=== PATIENT | female | born 2000 | race Caucasian/White ===

== ENCOUNTER → 2018-03-01 | Outpatient (CLI) | payer OTHER | LOC: M WUC 13:55 | DX: M25.512 Pain in left shoulder (principal) | CPT/HCPCS: 73030 ==

== ENCOUNTER → 2020-04-08 | Outpatient (REF) | payer OTHER ==
[~2020-04-08] MED LIST: BIOT10TA2 PO; CRAN450T4 PO; CYPR4TA PO; OMEP-218 PO; SERT-138 PO; VENTAER INH
== END ==
LOC: M LAB REF 18:39
PROVIDERS: ATTEND Internal Medicine Gastroenterology
DX: R19.7 Diarrhea, unspecified (principal)

== ENCOUNTER → 2020-04-10 | Outpatient (CLI) | payer OTHER | LOC: M LABSMTC 08:12 | PROVIDERS: ATTEND Anesthesiology | DX: Z01.812 Encounter for preprocedural laboratory examination (principal); Z20.822 Contact with and (suspected) exposure to COVID-19 ==

== ENCOUNTER → 2020-04-12 | Outpatient (CLI) | payer SELFPAY | LOC: M LABSMTC 09:50 | PROVIDERS: ATTEND Pediatrics | DX: Z20.822 Contact with and (suspected) exposure to COVID-19 (principal) ==

== ENCOUNTER 2020-04-15 09:05 | Day surgery (SDC) | payer OTHER ==
[~2020-04-15] VITALS: Ht 162.6 cm; Wt 78.9 kg
[~2020-04-15 09:05] MED LIST changes: +LIDOCAINE 2% 100MG/5ML SDV (FOR ANES.) As Ordered ONE; +NS 1,000 ML IV ONE; +propofoL 200 MG/20 ML VIAL As Ordered ONE
--- OUTSIDE RECORDS SUMMARY | 2020-04-15 09:09 | CCD | Continuity of Care Document ---
[facility] [place] Organization [facility] Address Unknown Phone Unavailable Care Team Providers Care Commercial Loan Officer Name Role Phone Arpita Lux Unavailable Unavailable Allergies, Adverse Reactions, Alerts Substance Reaction Status Criticality ciprofloxacin Active No Information Medications Medication Instructions Dosage Effective Dates (start - stop) Sta tus Comments Radha 14 mcg/24 hour (3 years) intrauterine device 14mcg/24 hour (3 years) - Active sertraline 100 mg tablet take 1 tablet by oral route every day 100 MG - Active OMEPRAZOLE (unknown strength) take 1 capsule by oral r oute every day 30 minutes to 1 hour before a meal Not Available - Active unknown dosage cyproheptadine 4 mg tablet take 1 tablet by oral route 3 times e very day 4 MG - Active ALBUTEROL INHALER 90mcg/inh INHALATION SPRAY MD - Active Problems Condition Effective Dates (start - stop) Clinical Status C omments Body mass index (BMI) 29.0-29.9, adult - Body mass index (BMI) 29.0-29.9, adult - Human immunodeficiency virus [HIV] counseling Other sex counseling Encounter for oth general cnsl and advice on contraception 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 Encntr screen for infections w sexl mode of transmiss Encounter for screening for human immunodeficiency virus Human immunodeficiency virus [HIV] counseling High risk heterosexual behavior Other sex counseling Encounter for oth general cnsl and advice on contraception 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 Other CVR Blood Pressure CVR Med.Svc. Height/Weight CVR Bender Machine.Svc. Contraceptive CVR Bender Machine.Svc. Other CVR Bender Machine.Svc. STI / H Results Test Name Date and Time Measure Units Reference Range Abnormal Flag St atus Comments No Information Advance Directives Directive Yes / No Effective Date File Name No Information Encounters Encounter Description Practice Location Reason(s) For Visit Diagnose s Date Provider Providers Copied on Encounter PREV VISIT, EST, AGE 18-39 [facility] [address] [place] [address], [id number], [place] tel:[phone] [place] Visit (chief complaint) Human immunodeficiency virus [HIV] couns elingOther sex counselingEncounter for oth general cnsl and advice on contraception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Body mass index (BMI) 29.0-29.9, adult Ludy Palm. [address] [place] [address], [id number], [place]. tel:[phone] Referring Provider: Arpita Boston, [address] [place] [address], [id number]. tel:[phone] [facility], [address] [place] [address], [id number], [place] tel:[phone] [facility] [place] Encntr screen for i nfections w sexl mode of transmissEncounter for screening for human immunodeficiency virusHuman immunodeficiency virus [HIV] counselingHigh risk heterosexual behaviorOther sex counselingEncounter for oth general cnsl and advice on contraception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Body mass index (BMI) 29.0-29.9, adult Ludy Palm. [address] [place] [address], [id number], . tel:[phone] Referring Provider: Arpita Boston, [address] [place] [address], [id number]. tel:[phone] [facility], [address] [place] [address], [id number], tel:[phone] [facility] Human immunodeficie ncy virus [HIV] counselingEncounter for test, result negativeEncounter for insertion of intrauterine contraceptive device Sanchez. [address] [place] [address], [address] [place] [address], . tel:[phone] Referring Provider: Xuan Correa, [address] [place] [address], [address] [place] [address]. tel:[phone] [facility], [address] [place] [address], [id number], tel:[phone] [facility] [place] Human immunodeficie ncy virus [HIV] counselingOther sex counselingEncounter for oth general cnsl and advice on contraceptionEncntr screen for infections w sexl mode of transmiss Brenna Bell. [address] [place] [address], [address] [place] [address], . tel:[phone] Referring Provider: Arabella Ceja, [address] [place] [address], [id number]. tel:[phone] Family History Family Member Diagnosis Age At Onset 1st degree relative No hx of coronary heart disease (female <65, male <55) 1st degree relative No hx of venous thromboembolism Father myocardial infarction 1st degree relative No hx of cancer of breast, colon, endome trium or ovary Immunizations Vaccine Date Status Comments No Information Payers Payer name Insurance type Covered constitution party ID Authorization(s ) [facility] [id number] [employer] PRESUMPTIVE ELIGIBILITY [facility] Social History Type Description Quantity Date Captured Comments Alcohol Use Details Unknown Caffeine Use Details Unknown Tobacco Use Status Never smoked tobacco Smoking Status Never smoker Non-Smoking Tobacco Use Details : No Details Available : No Details Available Sex Female Vital Signs Date / Time: Height Weight BMI Pulse Rate Blood Pressure Temperatu re Respiratory Rate Body Surface Area Head Circumference BMI percentile Pulse Ox In haled Ox 8:48 AM 65.00 in 175.40 lbs 29.19 kg/meter(2) 118/70 m m[Hg] Chief Complaint And Reason For Visit Most recent encounter only, dated '04/08/2020 08:35'. Preventative Visit (chief complaint) Reason For Referral Reason For Referral No Information Plan Of Treatment Date Type Action Status Goal Dietary management education, gu idance, and counseling completed Goal Dietary management education, gu idance, and counseling completed History Of Present Illness Encounter Date Complaint History Of Present I llness No Information Functional Status Date Functional Assessment No Information Medications Administered Medication Instructions Dosage Effective Dates (start - stop) Sta tus Comments No Information Instructions Date Instruction Additional Informati on Dietary management education, guidance, and counseling Related to Body mass index (BMI) 29.0-29.9, adult Dietary management education, guidance, and counseling Related to Body mass index (BMI) 29.0-29.9, adult Assessments Type Assessment Date assessment Human immunodeficiency virus [HIV] couns eling assessment Other sex counseling assessment Encounter for oth general cnsl and advic e on contraception assessment 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 Anterior palpation - Normal. No abdominal tenderness. No hepatic enlargement. No splenic enlargement. No palpable mass. Cardiovascular Normal Heart rate - Regular rate. Rhythm - Regular. Heart sounds - Normal S1, Normal S2. Murmurs - None. Extremities - No edema. Extremity Normal No Cyanosis. No Tree a. Neck Exam Normal Inspection - Normal. Palpation - Normal. Thyroid gland - Normal. Cervical lymph nodes - Normal. Neurological Normal Level of consciousne ss - Normal. Orientation - Normal. Respiratory Normal Inspection - Normal. Auscultation - Normal. Effort - Normal. Skin Normal Inspection - Normal. Palpation/texture - Normal. Breast * BSA was discussed. Genitourinary Normal Urethral meatus - No rmal. Urethra - Normal. External genitalia - Normal. Glands - Normal. Perineum - Normal. Vagina - Normal. Genitourinary * Cervix - IUC string per os.
--- OUTSIDE RECORDS SUMMARY | 2020-04-15 09:09 | CCD | Continuity of Care Document ---
Author Author [facility] Organization [facility] Address Unknown Phone Unavailable Care Team Providers Care Clinical Informatics Specialist Name Role Phone Cheri Chamberlain MD Unavailable Unavailable Allergies, Adverse Reactions, Alerts Substance Reaction Status Criticality ciprofloxacin Active No Information Medications Medication Instructions Dosage Effective Dates (start - stop) Sta tus Comments Radha 14 mcg/24 hour (3 years) intrauterine device 14mcg/24 hour (3 years) - Active OMEPRAZOLE (unknown strength) take 1 [...] Body mass index (BMI) 29.0-29.9, adult - Encntr screen for infections w sexl mode of transmiss Encounter for screening for human immunodeficiency virus Human immunodeficiency virus [HIV] counseling High risk heterosexual behavior Other sex counseling Encounter for oth general cnsl and advice on contraception 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 Human immunodeficiency virus [HIV] counseling Encounter for test, result negative Encounter for insertion of intrauterine contraceptive device Human immunodeficiency virus [HIV] counseling Other sex counseling Encounter for oth general cnsl and advice on contraception Encntr screen for infections w sexl mode of transmiss Procedures Procedure Date No Information Results Test Name Date and Time Measure Units Reference Range Abnormal Flag St atus Comments No Information Advance Directives Directive Yes / No Effective Date File Name No Information Encounters Encounter Description Practice Location Reason(s) For Visit Diagnose s Date Provider Providers Copied on Encounter [facility], [address] [place] [address], [id number], tel:[phone] JUAN Taylor No Information Bulmaro Alonzo. [address] [place] [address], [id number], . tel:[phone] [facility] [place], [address] [place] [address], [id number], [place] tel:[phone] JUAN [place] Encntr screen for i nfections w sexl mode of transmissEncounter for screening for human immunodeficiency virusHuman immunodeficiency virus [HIV] counselingHigh risk heterosexual behaviorOther sex counselingEncounter for oth general cnsl and advice on contraception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Body mass index (BMI) 29.0-29.9, adult Ludy Palm. [address] [place] [address], [id number], [place]. tel:[phone] Referring Provider: Arpita Boston, [address] [place] [address], [id number]. tel:[phone] [facility] [place], [address] [place] [address], [id number], [place] tel:[phone] JUAN [place] Human immunodeficie ncy virus [HIV] counselingEncounter for test, result negativeEncounter for insertion of intrauterine contraceptive device Sanchez. [address] [place] [address], [id number], [place]. tel:[phone] Referring Provider: Xuan Correa, [address] [place] [address], [id number]. tel:[phone] [facility] [place], [address] [place] [address], [id number], [place] tel:[phone] JUAN [place] Human immunodeficie ncy virus [HIV] counselingOther sex counselingEncounter for oth general cnsl and advice on contraceptionEncntr screen for infections w sexl mode of transmiss Brenna Bell. [address], [place], [id number], [place]. tel:[phone] Referring Provider: Arabella Ceja, [address], [place], [id number]. tel:[phone] Family History Family Member Diagnosis Age At Onset Father myocardial infarction Immunizations Vaccine Date Status Comments No Information Payers Payer name Insurance type Covered constitution party ID Authorization(s ) [facility] [id number] Social History Type Description Quantity Date Captured Comments Alcohol Use Details Unknown Caffeine Use Details Unknown Tobacco Use Status No Information Smoking Status Never smoker Sex Female Vital Signs Date / Time: Height Weight BMI Pulse Rate Blood Pressure Temperatu re Respiratory Rate Body Surface Area Head Circumference BMI percentile Pulse Ox In haled Ox No Information Chief Complaint And Reason For Visit No Information Reason For Referral Reason For Referral No [...] (BMI) 29.0-29.9, adult Assessments Type Assessment Date No Information Goals Health Concern Goal Type Priority Status Date No Information Medical Equipment Description Device [place] Device Identifier Effective Rolly es (start - stop) Status No Information Mental Status Date Cognitive Assessment No Information Health Concerns Observation Date No Information Concern Status Date No Information Physical Examination Exam Findings Details No Information
--- OUTSIDE RECORDS SUMMARY | 2020-04-15 09:10 | CCD ---
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 ped/adol (2 dose) 2 03/21/2007 Complete (Re ported) Patient Hep B pediatric 1 1998 Complete (Reported) P atient Hep B pediatric 2 1998 Complete (Reported) P atient Hep B pediatric 3 09/11/2002 Complete (Reported) P atient Influenza, seasonal, injectable 1 03/14/2012 Compl ete (Reported) Patient Influenza, seasonal, injectable 2 04/01/2013 Compl ete (Reported) Patient Influenza, seasonal, injectable 3 02/07/2016 Left Deltoid Complete (Administered) [facility] Influenza, seasonal, injectable 4 01/09/2018 Compl ete (Reported) Patient IPV 1 1998 Complete (Reported) Patient IPV 2 1998 Complete (Reported) Patient IPV 3 03/27/1999 Complete (Reported) Patient IPV 4 07/14/2003 Complete (Reported) Patient Meningococcal (MCV4) conjugate vaccine 1 10/03/2009 Complete (Reported) Patient Menveo 1 06/18/2014 Right Arm Complete (Administe red) [facility] Note: VIS Given MMR 1 09/04/1999 Complete (Reported) Patient MMR 2 07/14/2003 Complete (Reported) Patient PCV (Prevnar) 1 12/27/1999 Complete (Reported) Pat ient PCV (Prevnar) 2 07/25/2000 Complete (Reported) Pat ient Td 1 11/22/2009 Complete (Reported) Patient Varicella 1 06/12/1999 Complete (Reported) Patient Varicella 2 09/12/2006 Complete (Reported) Patient Allergies Includes: Active, inactive, and resolved Allergies Substance Type Reaction Onset Date - Time Resolved Date - Ti me Status DTaP Allergy seizure, anaphylaxis 1998 - 12:00AM Active Cipro Allergy Nausea, Vomiting, Diarrhea 06/29/2014 - 12:00AM Active Encounters Includes: Encounters from 02/23/2019 through 02/24/2020 Encounter Provider Location Date Check-In Time Check-Out Time D iagnosis ANNUAL PE-followup Zuleyka Marsh [facility] 02/24/2020 8:46AM 9:35AM Allergic Rhiniti s, Routine History and Physical Adult (18 - 64 Yrs), Depression Moderate sick visit Zuleyka [facility] 10/15/2019 12:50PM 1:22PM Diarrhea, Generalized Anxiet y Disorder Insurance Includes: Active Insurance Policies Plan Name Member ID Group # Subscriber Relationship Effective Da bridgette - [place] [id number] Alisha Rivas Child Advance Directives Includes: Current Advance DirectivesNo Advance Directives Recorded Health Concerns Includes: Active Health ConcernsNo Active Health Concerns Recorded Goals Includes: Active GoalsNo Active Goals Recorded Interventions Includes: Interventions for active GoalsNo Interventions Recorded Evaluations & Outcomes Includes: Evaluations & Outcomes for active GoalsNo Outcomes Recorded
--- OUTSIDE RECORDS SUMMARY | 2020-04-15 09:10 | CCD | Continuity of Care Document ---
Author Author Alyssa LINDA M.D. Organization Unknown Address [address], [address] [place] [address] Phone [phone] Care Team Providers Care Guard Entrance Registrar Name Role Phone Zuleyka Mora Maximo Franco AUTM [phone] Problems Active Problems Provider Date Allergic asthma without status asthmaticus Bhanu will M.D. Onset: 02/22/2020 Social History Type Date Description Comments Sex Unknown ETOH Use 0-1/day Tobacco Use Start: Unknown Non Smoker Allergies, Adverse Reactions, Alerts Active Allergies Reaction Severity Comments Date Whooping Cough Vaccine 02/21 Cipro 02/22/2020 Medications Active Medications SIG Qnty Indications Ordering Provide r Date Cyproheptadine HCL 4mg Tablets 1tab po qd Unknown Cranberry Concentrate/Vitamin C 140-100mg Capsules 1cap po bid Unknown Sertraline HCL 50mg Tablets 1tab po qd Unknown Biotin 10,000mcg Tablet 1tab po qd Unknown [address] 1cap po qd Unknown Radha 13.5mg IUD Unknown Immunizations Description No Information Available Vital Signs Date Vital Result Comment 02/22/2020 1:50pm BP Systolic 122 mmHg BP Diastolic 76 mmHg Height 64 inches 5'4" Weight 187.00 lb BMI (Body Mass Index) 32.1 kg/m2 [place] Body Weight 120 lb Weight 84.823 kg BSA (Body Surface Area) 1.90 m2 Results Description No Information Available Procedures Description No Information Available Medical Devices Description No Information Available Encounters Description No Information Available Assessments Date Code Description Provider 02/22/2020 R19.7 Diarrhea, unspecified Bhanu Linda M.D. 02/22/2020 R10.30 Lower abdominal pain, unspecifie d Bhanu Linda M.D. 02/22/2020 K62.5 Hemorrhage of anus and rectum Ch bonilla Linda M.D. Plan of Treatment 02/22/2020 - Bhanu Linda M.D.* R19.7 Diarrhea, unspecified * R10.30 Lower abdominal pain, unspecified * K62.5 Hemorrhage of anus and rectum * * New Labs:* Stool Panel([facility]), Ordered: 02/22/20 * Calprotectin Stool Sendout, Ordered: 02/22/20 * Fat Fecal Qualitative, Ordered: 02/22/20 * Pancreatic Elastase Stool Sendout, Ordered: 02/22/20 * H Pylori Stool Antigen, Ordered: 02/22/20 * New Orders:* Colonoscopy, Ordered: 02/22/20 * Comments:* Impression:-- Chronic diarrhea with lower abdominal pain and blood in stools -- DDx -- Need to r/o IBD vs IBS vs Infecitous enteritis. * Recommendations:* -- Educated patient about the prior test results and need for further work up. -- Will obtain stool panel tests. -- Will schedule for colonoscopy. The procedure, indications, risks (bleeding, perforation, infection, hypotension, respiratory depression, allergy, need for endotracheal intubation, surgery, or even ), benefits, limitations (e.g., missing a lesion), and all other alternatives (including no intervention) were explained to the patient who understood and agreed for the procedure. -- Return to GI clinic 2 weeks after the above. -- follow up with PMD for routine medical care and other age appropriate health maintenance. Functional Status Description No Information Available Mental Status Description No Information Available Referrals Refer to Reason for Referral Status Appt Date Caesar Lopez MD DIARRHEA Scheduled 12/31/2019 [facility], Gastroenterology [address], [address] [place] [address] [phone] Bhanu Linda M.D. inflammation of bowel disease Closed [address], [address] [place] [address] [phone]
--- OUTSIDE RECORDS SUMMARY | 2020-04-15 09:10 | CCD ---
Author Author [facility] Organization [facility] Address Unknown Phone Unavailable Care Team Providers Care Horticulture Professor Name Role Phone Lucy Chamberlain MD Unavailable Unavailable Bulmaro, Lucy Alonzo MD Unavailable Unavailable Bulmaro, Lucy Alonzo MD Unavailable Unavailable Bulmaro, Lucy Alonzo MD Unavailable Unavailable Bulmaro, Lucy Alonzo MD Unavailable Unavailable Bulmaro, Lucy Alonzo MD Unavailable Unavailable Bulmaro, Lucy Alonzo MD Unavailable Unavailable Bulmaro, Lucy Alonzo MD Unavailable Unavailable Bulmaro, Lucy Alonzo MD Unavailable Unavailable Bulmaro, Lucy Alonzo MD Unavailable Unavailable Bulmaro, Lucy Alonzo MD Unavailable Unavailable Bulmaro, Lucy Alonzo MD Unavailable Unavailable Bulmaro, Lucy Alonzo MD Unavailable Unavailable Bulmaro, Lucy Alonzo MD Unavailable Unavailable Bulmaro, Lucy Alonzo MD Unavailable Unavailable Bulmaro, Lucy Alonzo MD Unavailable Unavailable Bulmaro, Lucy Alonzo MD Unavailable Unavailable Bulmaro, Lucy Alonzo MD Unavailable Unavailable Bulmaro, Lucy Alonzo MD Unavailable Unavailable Bulmaro, Lucy Alonzo MD Unavailable Unavailable Bulmaro, Lucy Alonzo MD Unavailable Unavailable Bulmaro, Lucy Alonzo MD Unavailable Unavailable Bulmaro, Lucy Alonzo MD Unavailable Unavailable Bulmaro, Lucy Alonzo MD Unavailable Unavailable Bulmaro, Lucy Alonzo MD Unavailable Unavailable Bulmaro, Lucy Alonzo MD Unavailable Unavailable Bulmaro, Lucy Alonzo MD Unavailable Unavailable Bulmaro, Lucy Alonzo MD Unavailable Unavailable Bulmaro, Lucy Alonzo MD Unavailable Unavailable Bulmaro, Luyc Alonzo MD Unavailable Unavailable Bulmaro, A Cheri MENDEZ Unavailable Unavailable Bulmaro, A Cheri MENDEZ Unavailable Unavailable Bulmaro, A Cheri MENDEZ Unavailable Unavailable Bulmaro, A Cheri MENDEZ Unavailable Unavailable Bulmaro, A Cheri MENDEZ Unavailable Unavailable Bulmaro, A Cheri MENDEZ Unavailable Unavailable Bulmaro, A Cheri MENDEZ Unavailable Unavailable Bulmaro, A Cheri MENDEZ Unavailable Unavailable Bulmaro, A Cheri MENDEZ Unavailable Unavailable Bulmaro, A Cheri MENDEZ Unavailable Unavailable Bulmaro, A Cheri MENDEZ Unavailable Unavailable Bulmaro, A Cheri MENDEZ Unavailable Unavailable Bulmaro, A Cheri MENDEZ Unavailable Unavailable Bulmaro, A Cheri MENDEZ Unavailable Unavailable Bulmaro, A Cheri MENDEZ Unavailable Unavailable Bulmaro, A Cheri MENDEZ Unavailable Unavailable Bulmaro, A Cheri MENDEZ Unavailable Unavailable Bulmaro, A Cheri MENDEZ Unavailable Unavailable Bulmaro, A Cheri MENDEZ Unavailable Unavailable Bulmaro, A Cheri MENDEZ Unavailable Unavailable Bulmaro, A Cheri MENDEZ Unavailable Unavailable Bulmaro, A Cheri MENDEZ Unavailable Unavailable Bulmaro, A Cheri MENDEZ Unavailable Unavailable Bulmaro, A Cheri MENDEZ Unavailable Unavailable Bulmaro, A Cheri MENDEZ Unavailable Unavailable Bulmaro, A Cheri MENDEZ Unavailable Unavailable Bulmaro, A Cheri MENDEZ Unavailable Unavailable Bulmaro, A Cheri MENDEZ Unavailable Unavailable Bulmaro, A Cheri MENDEZ Unavailable Unavailable Bulmaro, A Cheri MENDEZ Unavailable Unavailable Bulmaro, A Cheri MENDEZ Unavailable Unavailable Bulmaro, A Cheri MENDEZ Unavailable Unavailable Bulmaro, A Cheri MENDEZ Unavailable Unavailable Bulmaro, A Cheri MENDEZ Unavailable Unavailable Bulmaro, A Cheri MENDEZ Unavailable Unavailable Bulmaro, A Cheri MENDEZ Unavailable Unavailable Bulmaro, A Cheri MENDEZ Unavailable Unavailable Bulmaro, A Cheri MENDEZ Unavailable Unavailable Bulmaro, A Cheri MENDEZ Unavailable Unavailable Bulmaro, A Cheri MENDEZ Unavailable Unavailable Bulmaro, A Cheri MENDEZ Unavailable Unavailable Bulmaro, A Cheri MENDEZ Unavailable Unavailable Bulmaro, A Cheri MENDEZ Unavailable Unavailable Bulmaro, A Cheri MENDEZ Unavailable Unavailable Bulmaro, A Cheri MENDEZ Unavailable Unavailable HINS, ANDERSON PA Unavailable Unavailable HINS, ANDERSON PA Unavailable Unavailable HINS, ANDERSON PA Unavailable Unavailable HINS, ANDERSON PA Unavailable Unavailable HINS, ANDERSON PA Unavailable Unavailable HINS, ANDERSON PA Unavailable Unavailable HINS, ANDERSON PA Unavailable Unavailable [place], J Arpita PA Unavailable Unavailable [place], J Arpita PA Unavailable Unavailable [place], J Arpita PA Unavailable Unavailable [place], J Arpita PA Unavailable Unavailable [place], J Arpita PA Unavailable Unavailable [place], J Arpita PA Unavailable Unavailable [place], J Arpita PA Unavailable Unavailable [place], J Arpita PA Unavailable Unavailable [place], J Arpita PA Unavailable Unavailable [place], J Arpita PA Unavailable Unavailable [place], Jojo Palm PA Unavailable Unavailable [place], Jojo Palm PA Unavailable Unavailable [place], Jojo Palm PA Unavailable Unavailable [place], Jojo Palm PA Unavailable Unavailable [place], Jojo Palm PA Unavailable Unavailable [place], Jojo Palm PA Unavailable Unavailable [place], Jojo Palm PA Unavailable Unavailable [place], Jojo Palm PA Unavailable Unavailable [place], Jojo Palm PA Unavailable Unavailable [place], Jojo Palm PA Unavailable Unavailable [place], Jojo Palm PA Unavailable Unavailable [place], Jojo Palm PA Unavailable Unavailable MUHA, M LAUREN TECHNICAL PLANNER Unavailable Unavailable MUHA, M LAUREN TECHNICAL PLANNER Unavailable Unavailable MUHA, M LAUREN TECHNICAL PLANNER Unavailable Unavailable MUHA, M LAUREN TECHNICAL PLANNER Unavailable Unavailable MUHA, M LAUREN TECHNICAL PLANNER Unavailable Unavailable MUHA, M LAUREN TECHNICAL PLANNER Unavailable Unavailable MUHA, M LAUREN TECHNICAL PLANNER Unavailable Unavailable MUHA, M LAUREN TECHNICAL PLANNER Unavailable Unavailable MUHA, M LAUREN TECHNICAL PLANNER Unavailable Unavailable MUHA, M LAUREN TECHNICAL PLANNER Unavailable Unavailable MUHA, M LAUREN TECHNICAL PLANNER Unavailable Unavailable MUHA, M LAUREN TECHNICAL PLANNER Unavailable Unavailable MUHA, M LAUREN TECHNICAL PLANNER Unavailable Unavailable MUHA, M LAUREN TECHNICAL PLANNER Unavailable Unavailable MUHA, M LAUREN TECHNICAL PLANNER Unavailable Unavailable MUHA, M LAUREN TECHNICAL PLANNER Unavailable Unavailable MUHA, M LAUREN TECHNICAL PLANNER Unavailable Unavailable MUHA, M LAUREN TECHNICAL PLANNER Unavailable Unavailable MUHA, M LAUREN TECHNICAL PLANNER Unavailable Unavailable MUHA, M LAUREN TECHNICAL PLANNER Unavailable Unavailable MUHA, M LAUREN TECHNICAL PLANNER Unavailable Unavailable MUHA, M LAUREN TECHNICAL PLANNER Unavailable Unavailable MUHA, M LAUREN TECHNICAL PLANNER Unavailable Unavailable MUHA, M LAUREN TECHNICAL PLANNER Unavailable Unavailable MUHA, M LAUREN TECHNICAL PLANNER Unavailable Unavailable MUHA, M LAUREN TECHNICAL PLANNER Unavailable Unavailable MUHA, M LAUREN TECHNICAL PLANNER Unavailable Unavailable MUHA, M LAUREN TECHNICAL PLANNER Unavailable Unavailable MUHA, M LAUREN TECHNICAL PLANNER Unavailable Unavailable MUHA, M LAUREN TECHNICAL PLANNER Unavailable Unavailable MUHA, M LAUREN TECHNICAL PLANNER Unavailable Unavailable MUHA, M LAUREN TECHNICAL PLANNER Unavailable Unavailable MUHA, M LAUREN TECHNICAL PLANNER Unavailable Unavailable MUHA, M LAUREN TECHNICAL PLANNER Unavailable Unavailable MUHA, M LAUREN TECHNICAL PLANNER Unavailable Unavailable MUHA, M LAUREN TECHNICAL PLANNER Unavailable Unavailable MUHA, M LAUREN TECHNICAL PLANNER Unavailable Unavailable MUHA, M LAUREN TECHNICAL PLANNER Unavailable Unavailable MUHA, M LAUREN TECHNICAL PLANNER Unavailable Unavailable MUHA, M LAUREN TECHNICAL PLANNER Unavailable Unavailable MUHA, M LAUREN TECHNICAL PLANNER Unavailable Unavailable MUHA, M LAUREN TECHNICAL PLANNER Unavailable Unavailable MUHA, M LAUREN TECHNICAL PLANNER Unavailable Unavailable MUHA, M LAUREN TECHNICAL PLANNER Unavailable Unavailable MUHA, M LAUREN TECHNICAL PLANNER Unavailable Unavailable MUHA, M LAUREN TECHNICAL PLANNER Unavailable Unavailable MUHA, M LAUREN TECHNICAL PLANNER Unavailable Unavailable MUHA, M LAUREN TECHNICAL PLANNER Unavailable Unavailable MUHA, M LAUREN TECHNICAL PLANNER Unavailable Unavailable MUHA, M LAUREN TECHNICAL PLANNER Unavailable Unavailable MUHA, M LAUREN TECHNICAL PLANNER Unavailable Unavailable MUHA, M LAUREN TECHNICAL PLANNER Unavailable Unavailable Chidi Lara MD Unavailable Unavailable Chidi Lara MD Unavailable Unavailable Chidi Lara MD Unavailable Unavailable Chidi Lara MD Unavailable Unavailable Chidi Lara MD Unavailable Unavailable Chidi Lara MD Unavailable Unavailable Chidi Lara MD Unavailable Unavailable Chidi Lara MD Unavailable Unavailable Chidi Lara MD Unavailable Unavailable Chidi Lara MD Unavailable Unavailable Chidi Lara MD Unavailable Unavailable Chidi Lara MD Unavailable Unavailable Chidi Lara MD Unavailable Unavailable Chidi Lara MD Unavailable Unavailable Chidi Lara MD Unavailable Unavailable Chidi Lara MD Unavailable Unavailable Chidi Lara MD Unavailable Unavailable Chidi Lara MD Unavailable Unavailable Chidi Lara MD Unavailable Unavailable Chidi Lara MD Unavailable Unavailable Chidi Lara MD Unavailable Unavailable Chidi Lara MD Unavailable Unavailable Chidi Lara MD Unavailable Unavailable Chidi Lara MD Unavailable Unavailable Chidi Lara MD Unavailable Unavailable Chidi Lara MD Unavailable Unavailable Chidi Lara MD Unavailable Unavailable Chidi Lara MD Unavailable Unavailable Chidi Lara MD Unavailable Unavailable Chidi Lara MD Unavailable Unavailable Chidi Lara MD Unavailable Unavailable Chidi Lara MD Unavailable Unavailable Chidi Lara MD Unavailable Unavailable Chidi Lara MD Unavailable Unavailable Chidi Lara MD Unavailable Unavailable Chidi Lara MD Unavailable Unavailable Chidi Lara MD Unavailable Unavailable Chidi Lara MD Unavailable Unavailable Chidi Lara MD Unavailable Unavailable Chidi Lara MD Unavailable Unavailable Re-disclosure Warning The records that you are about to access may contain information from federally-assisted alcohol or drug abuse programs. If such information is present, then the following federally mandated warning applies: This information has been disclosed to you from records protected by federal confidentiality rules (42 CFR part 2). The federal rules prohibit you from making any further disclosure of this information unless further disclosure is expressly permitted by the written consent of the person to whom it pertains or as otherwise permitted by 42 CFR part 2. A general authorization for the release of medical or other information is NOT sufficient for this purpose. The Federal rules restrict any use of the information to criminally investigate or prosecute any alcohol or drug abuse patient.The records that you are about to access may contain highly sensitive health information, the redisclosure of which is protected by Article 27-F of the [facility] Public Health law. If you continue you may have access to information: Regarding HIV / AIDS; Provided by facilities licensed or operated by the [facility] Office of Mental Health; or Provided by the [facility] Office for People With Developmental Disabilities. If such information is present, then the following [facility] mandated warning applies: This information has been disclosed to you from confidential records which are protected by state law. State law prohibits you from making any further disclosure of this information without the specific written consent of the person to whom it pertains, or as otherwise permitted by law. Any unauthorized further disclosure in violation of state law may result in a fine or mcc sentence or both. A general authorization for the release of medical or other information is NOT sufficient authorization for further disc losure. Family History Family Member Name Family Member Gender Family Member Status Date o f Status Description Data Source(s) Unknown Male Diagnosis 03/20/2019 12:00:00 AM EST [facility] ([facility]) Unknown Unknown Problem [facility] ([facility]) Unknown Male Problem [facility] ([facility] [place]) Encounters Encounter Providers Location Date Indications Data Source(s ) OutpatientPREV VISIT, EST, AGE 18-39 Attender: Arpita LUCIO [facility] [place] 04/08/2020 08:35:00 AM EST - 04/08/2020 08:35:00 AM ES T Body mass index (BMI) 29.0-29.9, adultEncntr for artificial fly tier exam (general) (routine) w/o abn findingsEncounter for oth general cnsl and advice on contraceptionOther sex counselingHuman immunodeficiency virus [HIV] counseling [facility] ([facility]) Body mass index (BMI) 29.0-29.9, adult Encntr for artificial fly tier exam (general) (routine) w/o abn findings Encounter for oth general cnsl and advic e on contraception Other sex counseling Human immunodeficiency virus [HIV] couns lashay Outpatient Attender: Ramonita Lara MD 03/28/2020 09:30:00 AM EST [facility] Attender: Cheri Chamberlain MD [facility] [place] 1 05/11/2019 10:25:00 AM EST - 03/10/2020 10:25:00 AM EST [facility] ([facility]) Outpatient<td ID="encounterTypeDescripti onID0">ANNUAL PE-followup exam/</td><td>Lauren SHRESTHAP-</td><td>[facility], [facility]</td><td>02/24/2020</td><td>8:46AM</td><td>9:35AM</td><td><content ID="encounterDiagnosisID0-0">Allergic Rhinitis</content>, <content ID="encounterDiagnosisID0-1">Routine History and Physical Adult (18 - 64 Yrs)</content>, <content ID="encounterDiagnosisID0-2">Depression Moderate</content></td> Attender: LAUREN VAZQUEZ [facility] , [facility] 02/24/2020 08:46:00 AM EST - 02/24/2020 09:35:00 AM ES T Depression ModerateRoutine History and Physical Adult (18 - 64 Yrs)Allergic Rhinitis OLINDA ([facility]) Depression Moderate Routine History and Physical Adult (18 - 64 Yrs) Allergic Rhinitis Outpatient Attender: ANDERSON LUCIO [facility] 12/23 12:54:00 PM EDT - 01/06/2020 12:55:00 PM EDT S99.911A [facility] S99.911A Patient discharged. Outpatient<td ID="encounterTypeDescripti onID1">sick visit</td><td>Lauren Caballero TECHNICAL PLANNER-BC</td><td>[facility], [facility]</td><td>10/15/2019</td><td>12:50PM</td><td>1:22PM</td><td><content ID="encounterDiagnosisID1-0">Diarrhea</content>, <content ID="encounterDiagnosisID1-1">Generalized Anxiety Disorder</content></td> [facility] 10/15/2019 12:50:00 PM EDT - 10/15/2019 01:22:00 PM EDT Generalized Anxiety DisorderDiarrheaGeneralized Anxiety DisorderDiarrheaGeneralized Anxiety DisorderDiarrhea OLINDA ([facility]) Generalized Anxiety Disorder Diarrhea Generalized Anxiety Disorder Diarrhea Generalized Anxiety Disorder Diarrhea Attender: Arpita Terrell 02/23 12:45:00 PM EST - 03/20/2019 12:45:00 PM EST Body mass index (BMI) 29.0-29.9, adultEn cntr for artificial fly tier exam (general) (routine) w/o abn findingsEncounter for oth general cnsl and advice on contraceptionOther sex counselingHigh risk heterosexual behaviorHuman immunodeficiency virus [HIV] counselingEncounter for screening for human immunodeficiency virusEncntr screen for infections w sexl mode of transmiss NextGen ([facility]) Body mass index (BMI) 29.0-29.9, adult Encntr for artificial fly tier exam (general) (routine) w/o abn findings Encounter for oth general cnsl and advic e on contraception Other sex counseling High risk heterosexual behavior Human immunodeficiency virus [HIV] couns eling Encounter for screening for human immuno deficiency virus Encntr screen for infections w sexl mode of transmiss Medications Medication Brand Name Start Date Product Form Dose Route Admi nistrative Instructions Pharmacy Instructions Status Indications Reaction Description Data Source(s) 420 gram 03/16/2020 12:00:00 AM EST [facility] 4000 DRINK THE LIQUID PER THE PRE-PROCEDURE INSTRUCTIONS DRINK THE LIQUID PER THE PRE-PROCEDUR E INSTRUCTIONS SOLD: 03/22/2020 [facility] 20 mg 02/25/2020 12:00:00 AM EST capsule,delayed release (DR/EC) 30 TAKE ONE CAPSULE BY MOUTH ONCE DAILY TAKE ONE CAPSULE BY MOUTH ONCE DAILY SOLD: 03/22/2020 [facility] 20 mg 02/25/2020 12:00:00 AM EST capsule,delayed release (DR/EC) 30 TAKE ONE CAPSULE BY MOUTH ONCE DAILY TAKE ONE CAPSULE BY MOUTH ONCE DAILY SOLD: 02/25/2020 [facility] Sertraline 100 MG Oral Tablet Sertraline HCl 100 MG Or al Tablet Sertraline HCl 100 MG Oral Tablet 02/24/2020 12:00:00 AM EST active sertraline 100 MG Oral Tablet [facility] Omeprazole 20 MG Delayed Release Oral Ca psule Omeprazole 20 MG Oral Capsule Delayed Release Omeprazole 20 MG Oral Capsule Delayed Release 02/24/20 20 12:00:00 AM EST active omeprazole 20 MG Delayed Release Oral Capsule [place]LINDA ([place] [facility]) Sertraline 100 MG Oral Tablet Sertraline HCl 100 MG Or al Tablet Sertraline HCl 100 MG Oral Tablet 02/24/2020 12:00:00 AM EST active sertraline 100 MG Oral Tablet Schedulicity) 100 mg 02/24/2020 12:00:00 AM EST tablet 30 TAKE ONE TABLET BY MOUTH ONCE DAILY TAKE ONE TABLET BY MOUTH ONCE DAILY SOLD: 02/25/2020 [facility] 200 ACTUAT Albuterol 0.09 MG/ACTUAT Mete red Dose Inhaler [Ventolin] Ventolin HFA 108 (90 Base) MCG/ACT Inhalation Aerosol Solution Ventolin HFA 108 (90 Base) MCG/ACT Inhalation Aerosol Solution 11/06/2019 12:00:00 AM EDT 2 active [id number] 200 ACTUAT albuter ol 0.09 MG/ACTUAT Metered Dose Inhaler [Ventolin] Schedulicity) Sertraline 50 MG Oral Tablet Sertraline HCl 50 MG Oral Tablet Sertraline HCl 50 MG Oral Tablet 11/06/2019 12:00:00 AM EDT 1 abo rted sertraline 50 MG Oral Tablet [facility] 50 mg 10/16/2019 12:00:00 AM EDT tablet 30 TAKE ONE TABLET BY MOUTH EVERY DAY TAKE ONE TABLET BY MOUTH EVERY DAY SOLD: 10/16/2019 [facility] Sertraline 50 MG Oral Tablet Sertraline HCl 50 MG Oral Tablet Sertraline HCl 50 MG Oral Tablet 10/15/2019 12:00:00 AM EDT abo rted sertraline 50 MG Oral Tablet REEDLEY ([facility]) Cyproheptadine hydrochloride 4 MG Oral T ablet Cyproheptadine HCl 4 MG Oral Tablet Cyproheptadine HCl 4 MG Oral Tablet 10/15/2019 12:00:00 AM EDT 1 active cyproheptadine hydrochloride 4 M G Oral Tablet RE[facility]LEY ([facility]) Cyproheptadine hydrochloride 4 MG Oral Tablet CYPROHEPTADINE HCL 09/25/2019 12:00:00 AM EDT tablet 30 TAKE ONE TABLET BY MOUTH EVERY DAY TAKE ONE TABLET BY MOUTH EVERY DAY SOLD: 09/26/2019 [facility] Cyproheptadine hydrochloride 4 MG Oral Tablet CYPROHEPTADINE HCL 09/25/2019 12:00:00 AM EDT tablet 30 TAKE ONE TABLET BY MOUTH EVERY DAY TAKE ONE TABLET BY MOUTH EVERY DAY SOLD: 11/10/2019 [facility] Cyproheptadine hydrochloride 4 MG Oral T ablet Cyproheptadine HCl 4 MG Oral Tablet Cyproheptadine HCl 4 MG Oral Tablet 09/24/2019 12:00:00 AM EDT 1 aborted cyproheptadine hydrochloride 4 M G Oral Tablet [facility] 20 mg 11/14/2018 12:00:00 AM EDT capsule,delayed release (DR/EC) 90 TAKE ONE CAPSULE BY MOUTH EVERY DAY TAKE ONE CAPSULE BY MOUTH EVERY DAY SOLD: 03/20/2019 [facility] 20 mg 11/14/2018 12:00:00 AM EDT capsule,delayed release (DR/EC) 60 TAKE ONE CAPSULE BY MOUTH EVERY DAY TAKE ONE CAPSULE BY MOUTH EVERY DAY SOLD: 11/13/2019 [facility] 20 mg 11/14/2018 12:00:00 AM EDT capsule,delayed release (DR/EC) 90 TAKE ONE CAPSULE BY MOUTH EVERY DAY TAKE ONE CAPSULE BY MOUTH EVERY DAY SOLD: 08/01/2019 [facility] Cyproheptadine hydrochloride 4 MG Oral T ablet Cyproheptadine HCl 4MG Oral Tablet Cyproheptadine HCl 4MG Oral Tablet 11/13/2018 12:00:00 AM EDT 1 aborted cyproheptadine hydrochloride 4 M G Oral Tablet [facility] ([facility]) Omeprazole 20 MG Delayed Release Oral Ca psule Omeprazole 20MG Oral Capsule Delayed Release Omeprazole 20MG Oral Capsule Delayed Release 12:00:00 AM EDT aborted omeprazole 20 M G Delayed Release Oral Capsule [facility] ([facility]) 200 ACTUAT Albuterol 0.09 MG/ACTUAT Mete red Dose Inhaler [Ventolin] Ventolin HFA 108 (90 Base)MCG/ACT Inhalation Aerosol Solution Ventolin HFA 108 (90 Base)MCG/ACT Inhalation Aerosol Solution 10/31/2018 12:00:00 AM EDT 2 aborted [id number] 200 ACTUAT albuterol 0.09 MG/ACTUAT Metered Dose Inhaler [Ventolin] [facility] ([facility]) Insurance Providers Payer name Policy type / Coverage type Policy ID Covered constitution party ID Covered constitution party's relationship to phillips Policy Phillips Plan Information [facility] [id number] SP [id number] SELF PAY ONLY [id number] SP [id number] 0 0 [facility] [id number] SP [id number] [facility] [id number] Unemployed [id number] [facility] Commercial [id number] Self [id number] [employer] AT [facility] [id number] 18 [id number] [employer] AT [facility] [id number] 18 [id number] [employer] AT [facility] [id number] 19 [id number] [facility] PL[facility] U [id number] Ch ild [id number] [facility] O [id number] S [id number] [facility] Commercial Self FOR LIFE U [id number] Child [id number] [facility] Service Commercial Family Depend ent [facility] [id number] [id number] Problems, Conditions, and Diagnoses Code Display Name Description Problem Type Effective Dates Data Source(s) [id number] Allergic asthma without status asthmatic us Allergic asthma without status asthmaticus Problem 02/22/2020 12:00:00 AM EST MEDRAY ([facility], ) Y99.8 Other external cause status OTHER EXTERNAL CAUSE STATU S Diagnosis [facility]/06[facility] or not applicable UNSPECIFIED PLACE OR NOT APPLICABLE Diagnosis 01/06/2020 12:54:00 PM [facility] W10.8XXA Fall (on) (from) other stairs and steps, initial encounter FALL (ON) (FROM) OTHER STAIRS AND STEPS, INITIAL ENCOUNTER Diagnosis 01/05 12:54:00 PM [facility] S93.401A Sprain of unspecified ligament of right ankle, initial encounter SPRAIN OF UNSPECIFIED LIGAMENT OF RIGHT ANKLE, INIT ENCNTR Diagnosis 1 12:54:00 PM [facility] S93.601A Unspecified sprain of right foot, initia l encounter UNSPECIFIED SPRAIN OF RIGHT FOOT, INITIAL ENCOUNTER Diagnosis 01/06/2020 12:54:00 PM [facility] S99.911A Unspecified injury of right ankle, initi al encounter UNSPECIFIED INJURY OF RIGHT ANKLE, INITIAL ENCOUNTER Diagnosis 01/06/2020 12:54:00 PM [facility] Surgeries/Procedures Procedure Description Date Indications Data Source(s) CVR Die Maker Electronic.Svc. STI / H 04/08/2020 12:00:00 AM EST - 04/08/2020 12:00:00 AM EST [facility] ([facility]) CVR Die Maker Electronic.Svc. Other 04/08/2020 12:00:00 AM EST - 2020 12:00:00 AM EST [facility] ([facility]) CVR Die Maker Electronic.Svc. Contraceptive 04/08/2020 12 :00:00 AM EST - 04/08/2020 12:00:00 AM EST [facility] ([facility]) CVR Med.Svc. Height/Weight 04/08/2020 12 :00:00 AM EST - 04/08/2020 12:00:00 AM EST [facility] ([facility]) CVR Blood Pressure 04/08/2020 12:00:00 AM EST - 2020 12:00:00 AM EST [facility] ([facility]) CVR Med.Svc. Other 04/08/2020 12:00:00 AM EST - 2020 12:00:00 AM EST [facility] ([facility]) HCS Without Test 04/08/2020 12:00:00 AM EST - 04/08/19 21 12:00:00 AM EST [facility] ([facility]) CYTOPATH, C/V, THIN LAYER 04/08/2020 12: 00:00 AM EST - 04/08/2020 12:00:00 AM EST [facility] ([facility]) PREV VISIT, EST, AGE 18-39 04/08/2020 12 :00:00 AM EST - 04/08/2020 12:[facility] Hospital outpatient clinic visit for assessment and ma nagement of a patient Hospital Outpatient Clinic Visit 01/06/2020 12:00:00 AM [facility] RADEX FOOT COMPLETE MINIMUM 3 VIEWS X-RAY EXAM OF FOOT 12/23 12:00:00 AM [facility] RADEX ANKLE COMPLETE MINIMUM 3 VIEWS X-RAY EXAM OF ANKLE 12:00:00 AM [facility] RADIOLOGIC EXAMINATION TIBIA & FIBULA 2 VIEWS X-RAY EXAM OF LOWER LEG 01/06/2020 12:00:00 AM [facility] Venipuncture (routine) Venipuncture (routine) 10/15/2019 12:00:00 A [facility] ([facility]) CBC CBC 10/15/2019 12:00:00 AM [facility] ([facility]) TSH- Thyroid Stimulating Hormone TSH- Thyroid Stimulating Ho rmone 10/15/2019 12:00:00 AM [facility] Results ID Date Data Source [id number] 03/28/2020 12:14:00 PM [facility] Normal result is "BinaxNow Covid-19 Ag n egative"BinaxNow Covid-19 Ag is a rapid lateral flowimmunochromatographic immunoassayThis test detects both viable(live) and non-viable, SARS-COVand SARS-COV-2.Positive test results do not differentiate between SARS-COVand GACX-XFU-3Tcomdanl results , from patients with symptom onset beyondseven days, should be treated as presumptive andconfirmation with a molecular assay, if necessary, forpatient managementIf the differentiation of specific SARS viruses and strainsis needed, additional testing, in consultation with stateand local public health departments, is required.SARS-CoV-2 Ag Resp Ql IA.rapid Name Value Range Interpretation Code Description Data Elissa rce(s) Supporting Document(s) ID Date Data Source [id number] 03/28/2020 09:30:00 AM EST [facility] Name Value Range Interpretation Code Description Data Elissa rce(s) Supporting Document(s) SARS-CoV-2 (COVID-19) Ag [Presence] in R espiratory specimen by Rapid immunoassay [facility] This lab was ordered by [facility] and reported by [facility]. ID Date Data Source [id number] 03/23/2020 12:00:00 AM EST [facility] Name Value Range Interpretation Code Description Data Elissa rce(s) Supporting Document(s) Carestart Rapid COVID Antigen Test [facility] This lab was reported by [facility]. ID Date Data Source [id number] 03/23/2020 12:00:00 AM EST [facility] Name Value Range Interpretation Code Description Data Elissa rce(s) Supporting Document(s) SARS coronavirus 2 RNA [Presence] in Res piratory specimen by NATALIE with probe detection [facility] This lab was ordered by [facility] and reported by [facility]. ID Date Data Source [id number] 03/09/2020 12:00:00 AM EST [facility] Name Value Range Interpretation Code Description Data Elissa rce(s) Supporting Document(s) SARS-CoV-2 RT-PCR-At Home Kits [facility] This lab was ordered by [facility] and re ported by [facility]. ID Date Data Source [id number] 02/07/2020 10:27:00 AM EST [facility] Name Value Range Interpretation Code Description Data Elissa rce(s) Supporting Document(s) SARS-CoV-2 RNA Resp Ql NATALIE+probe [facility] This lab was ordered by [facility] and reported by [facility] [employer]. ID Date Data Source [id number] 02/03/2020 12:05:00 PM EST [facility] Name Value Range Interpretation Code Description Data Elissa rce(s) Supporting Document(s) SARS-CoV-2 RNA Resp Ql NATALIE+probe [facility] This lab was ordered by [facility] and reported by [facility] [employer]. ID Date Data Source [id number] 01/20/2020 11:42:00 AM EDT [facility] Name Value Range Interpretation Code Description Data Elissa rce(s) Supporting Document(s) SARS-CoV-2 RNA Resp Ql NATALIE+probe [facility] This lab was ordered by [facility] and reported by [facility] [employer]. ID Date Data Source [id number] 01/07/2020 08:15:[address] [facility] Name: SHERWIN MICHEL : [birth year] Age/Sex: 19F Ordering Provider: LUCIO Razo Med Rec #: [id number] Reg Status: [facility] Room #: Date of Service: 01/06/20 Report Number: [id number] cc:LUCIO Razo Send Report To: [id number] XRP/XR Ankle Rt Min. 3 Views Reason for exam: S99.911A, INJURY OF RIGHT ANKLE, INITIAL ENCOUNTER FINDINGS: Routine views show no fracture or dislocation. The ankle mortise is normally maintained and the articular surfaces are smooth. The soft tissues areunremarkable. There is a small subtle well corticated density at the region of the medial malleolus probably secondary to an old injury. IMPRESSION: NEGATIVE ANKLE. REPORT DICTATED BY CHACHO MARSHALL, REVIEWED AND SIGNED BY DR. DALY. Fluoroscopy time in seconds: Number of Exposures: Time Portable Image Performed: Contrast Agent in ml: Method of Administration: REPORT SIGNATURE ON FILE Reported By: Chacho Daly MD <Electronically signed by Cherrie Daly MD> 01/07/2009 Dictation Date/Time: 01/06/201401 Transcribed Date/Time: 01/07/20814 Panelboard Assembler: CAROLA Name Value Range Interpretation Code Description Data Elissa rce(s) Supporting Document(s) ID Date Data Source [id number] 01/07/2020 08:16:00 AM EDT [facility] Name: SHERWIN MICHEL : [birth year] Age/Sex: 19F Ordering Provider: LUCIO Razo Med Rec #: [id number] Reg Status: [facility] Room #: Date of Service: 01/06/20 Report Number: [id number] cc:Anderson MorinCENTRAL MAINE MEDICAL CENTERAlisha Send Report To: [id number] XRP/XR Leg Tibia Fibula Rt 2 views Reason for exam: S99.911A, INJURY OF RIGHT ANKLE, INITIAL ENCOUNTER FINDINGS: There is normal alignment and position of the bones of the lower leg. No bony abnormalities are identified. IMPRESSION: UNREMARKABLE LOWER LEG. REPORT DICTATED BY CHACHO MARSHALL, REVIEWED AND SIGNED BY DR. DALY. Fluoroscopy time in seconds: Number of Exposures: Time Portable Image Performed: Contrast Agent in ml: Method of Administration: REPORT SIGNATURE ON FILE Reported By: Chacho Daly MD <Electronically signed by Cherrie Daly MD> 01/07/20908 Dictation Date/Time: 01/06/201401 Transcribed Date/Time: 01/07/20815 Panelboard Assembler: CAROLA Name Value Range Interpretation Code Description Data Elissa rce(s) Supporting Document(s) ID Date Data Source [id number] 01/07/2020 08:14:00 AM EDT [facility] Name: SHERWIN MICHEL : [birth year] Age/Sex: 19F Ordering Provider: LUCIO Razo Med Rec #: [id number] Reg Status: DEP POV Room #: Date of Service: 01/06/20 Report Number: [id number] cc:LUCIO Razo Send Report To: [id number] XRP/XR Foot Rt Min. 3 Views Reason for exam: S99.911A, INJURY OF RIGHT ANKLE, INITIAL ENCOUNTER FINDINGS: Routine views show no fracture or dislocation. The joint spaces are well maintained and the articular surfaces are smooth. No osseous abnormality is demonstrated. The soft tissues appear normal. IMPRESSION: NEGATIVE FOOT. REPORT DICTATED BY CHACHO MARSHALL, REVIEWED AND SIGNED BY DR. DALY. Fluoroscopy time in seconds: Number of Exposures: Time Portable Image Performed: Contrast Agent in ml: Method of Administration: REPORT SIGNATURE ON FILE Reported By: Chacho Daly MD <Electronically signed by Cherrie Daly MD> 01/07/20 0909 Dictation Date/Time: 01/06/20 1402 Transcribed Date/Time: 01/07/20 0814 T ranscriptionist: CAROLA Name Value Range Interpretation Code Description Data Elissa rce(s) Supporting Document(s) ID Date Data Source [id number] 01/05/2020 08:55:00 AM EDT [facility] Name Value Range Interpretation Code Description Data Elissa rce(s) Supporting Document(s) SARS-CoV-2 RNA Resp Ql NATALIE+probe [facility] This lab was ordered by [facility] and reported by [facility] [employer]. ID Date Data Source [id number] 12/23/2019 01:38:00 PM EDT [facility] Name Value Range Interpretation Code Description Data Elissa rce(s) Supporting Document(s) SARS-CoV-2 RNA Resp Ql NATALIE+probe [facility] This lab was ordered by [facility] and reported by [employer] [employer]. ID Date Data Source [id number] 11/25/2019 02:42:00 PM EDT [facility] Name Value Range Interpretation Code Description Data Elissa rce(s) Supporting Document(s) SARS-CoV-2 RNA Resp Ql NATALIE+probe [facility] This lab was ordered by [employer] and reported by [facility] [employer]. ID Date Data Source [id number] 11/15/2019 08:39:00 AM EDT [facility] Name Value Range Interpretation Code Description Data Elissa rce(s) Supporting Document(s) SARS-CoV-2 RNA Resp Ql NATALIE+probe [facility] This lab was ordered by [employer] and reported by [facility] [employer]. ID Date Data Source [id number] 11/08/2019 12:00:00 AM EDT [facility] Name Value Range Interpretation Code Description Data Elissa rce(s) Supporting Document(s) SARS coronavirus 2 RNA [Presence] in Res piratory specimen by NATALIE with probe detection [facility] This lab was ordered by [facility] and reported by [facility]. ID Date Data Source [id number] 10/15/2019 01:28:00 PM EDT [facility] ([facility]) Name Value Range Interpretation Code Description Data Elissa rce(s) Supporting Document(s) TSH 2.344 uIu/mL TSH [facility] ([facility]) Note: Responsible Observer: AW ID Date Data Source [id number] 10/15/2019 01:28:00 PM EDT [facility] ([facility]) Name Value Range Interpretation Code Description Data Elissa rce(s) Supporting Document(s) GRAN# 8.1 /mm3 Above high normal GRAN# [facility] ([facility]) Note: Responsible Observer: AW HCT 41.1 % HCT [facility] ([facility]) Note: Responsible Observer: AW GRAN% 71.9 % GRAN% [facility] ([facility]) Note: Responsible Observer: AW HGB 14.2 g/dl HGB [facility] ([facility]) Note: Responsible Observer: AW LY# 2.5 /mm3 LY# [facility] ([facility]) Note: Responsible Observer: AW MCV 89.6 um3 MCV [facility] ([facility]) Note: Responsible Observer: AW LY% 22.1 % Below low normal LY% [facility] ([facility]) Note: Responsible Observer: AW MCHC 34.6 G/DL MCHC [facility] ([facility]) Note: Responsible Observer: AW MCH 31.0 pg MCH [facility] ([facility]) Note: Responsible Observer: AW MPV 9.6 um3 MPV [facility] ([facility]) Note: Responsible Observer: AW MID# 0.7 /mm3 MID# [facility] ([facility]) Note: Responsible Observer: AW PLT 356 /mm3 PLT [facility] ([facility]) Note: Responsible Observer: AW MID% 6.0 % MID% [facility] ([facility]) Note: Responsible Observer: AW RBC 4.58 /mm3 RBC [facility] ([facility]) Note: Responsible Observer: AW WBC 11.2 /mm3 Above high normal WBC [facility] ([facility]) Note: Responsible Observer: AW RDW 15.3 % Above high normal RDW [facility] ([facility]) Note: Responsible Observer: AW Procedure Social History Code Duration Value Status Description Data Source(s ) Smoking 04/08/2020 12:00:00 AM EST Never smoker completed [facility] Vital Signs ID Date Data Source UNK Name Value Range Interpretation Code Description Data Source(s) Body mass index (BMI) [Ratio] 29.19 kg/m2 Overweight 29.19 kg/m2 [facility] ([facility]) Diastolic blood pressure 70 mm[Hg] 70 mm[Hg] [facility] ([facility]) Systolic blood pressure 118 mm[Hg] 118 mm[Hg] N [facility] ([facility]) Body weight 79.560 kg 79.560 kg [facility] ([facility] Body height 165.10 cm 165.10 cm [facility] ([facility]) Body surface area Derived from formula 1.92 m2 1.92 m2 [facility] ([facility]) pap 2015 Body mass index (BMI) [Ratio] 31.0 kg/m2 31.0 k g/m2 [facility] ([facility]) pap 2015 Body weight 186 [lb_av] 186 [lb_av] [facility] ([facility]) pap 2015 Body height 65 [in_i] 65 [in_i] [facility] ([facility]) pap 2015 Respiratory rate 18 /min 18 /min [facility] ([facility]) pap 2015 Heart rate 72 /min 72 /min [facility] ([facility]) pap 2015 Diastolic blood pressure 78 mm[Hg] 78 mm[Hg] [facility] ([facility]) pap 2015 Systolic blood pressure 120 mm[Hg] 120 mm[Hg] [facility] pap 2015 Body surface area Derived from formula 1.90 m2 1.90 m2 [facility] ([facility]) Body weight 84.823 kg 84.823 kg [facility] ([facility]) [facility] body weight 120 [lb_av] 120 [lb_av] [facility] ([facility]) Body mass index (BMI) [Ratio] 32.1 kg/m2 32.1 k g/m2 [facility] ([facility]) Body weight 187.00 [lb_av] 187.00 [lb_av] [facility] ([facility]) Body height 64 [in_i] 64 [in_i] [facility] ([facility]) 5'4" Diastolic blood pressure 76 mm[Hg] 76 mm[Hg] [facility] ([facility]) Systolic blood pressure 122 mm[Hg] 122 mm[facility]Hg] [facility] Body surface area Derived from formula 1.92 m2 1.92 m2 [facility] ([facility]) Body mass index (BMI) [Ratio] 31.0 kg/m2 31.0 k g/m2 [facility] ([facility]) Body weight 186 [lb_av] 186 [lb_av] [facility] ([facility]) Body height 65 [in_i] 65 [in_i] [facility] ([facility]) Respiratory rate 18 /min 18 /min [facility] ([facility]) Heart rate 60 /min 60 /min [facility] ([facility]) Diastolic blood pressure 80 mm[Hg] 80 mm[Hg] [facility] ([facility]) Systolic blood pressure 116 mm[Hg] 116 mm[Hg] [facility] Patient Treatment Plan of Care Planned Activity Planned Date Details Description Data Source (s) Sertraline 100 MG Oral Tablet 02/24/2020 12:00:00 AM [facility] ([facility]) Omeprazole 20 MG Delayed Release Oral Capsule 02/24/2020 12:00:00 A [facility] ([facility]) Sertraline 100 MG Oral Tablet 02/24/2020 12:00:00 AM [facility] ([facility]) Sertraline 50 MG Oral Tablet 11/06/2019 12:00:00 AM [facility] ([facility]) 200 ACTUAT Albuterol 0.09 MG/ACTUAT Metered Dose Inhal er [Ventolin] 11/06/2019 12:00:00 AM [facility] ([facility]) Sertraline 50 MG Oral Tablet 10/15/2019 12:00:00 AM [facility] ([facility]) Cyproheptadine hydrochloride 4 MG Oral Tablet 10/15/2019 12:00:00 A [facility] ([facility]) Cyproheptadine hydrochloride 4 MG Oral Tablet 09/24/2019 12:00:00 A [facility] ([facility]) Omeprazole 20 MG Delayed Release Oral Capsule 11/13/2018 12:00:00 A [facility] ([facility]) Cyproheptadine hydrochloride 4 MG Oral Tablet 11/13/2018 12:00:00 A [facility]) 200 ACTUAT Albuterol 0.09 MG/ACTUAT Metered Dose Inhal er [Ventolin] 10/31/2018 12:00:00 AM [facility] ([facility])
--- NOTE | 2020-04-15 10:59 | ROOR ---
Patient Name: Alyssa Rivas Procedure Date: 04/15/2020 10:20 AM Date of : 2000 Age: 19 Room: [facility] Gender: Female Note Status: Finalized Procedure: Colonoscopy Indications: Chronic diarrhea, Hematochezia Providers: Bhanu Villasenor MD Referring MD: Zuleyka Mora NP Requesting Provider: Medicines: Monitored Anesthesia Care Complications: No immediate complications. Procedure: Pre-Anesthesia Assessment: - Prior to the procedure, a History and Physical was performed, and patient medications and allergies were reviewed. The patient is competent. The risks and benefits of the procedure and the sedation options and risks were discussed with the patient. All questions were answered and informed consent was obtained. Patient identification and proposed procedure were verified by the physician, the nurse and the anesthesiologist in the procedure room. Mental Status Examination: alert and oriented. Airway Examination: normal oropharyngeal airway and neck mobility. Respiratory Examination: clear to auscultation. CV Examination: normal. Prophylactic Antibiotics: The patient does not require prophylactic antibiotics. Prior Anticoagulants: The patient has taken no previous anticoagulant or antiplatelet agents. ASA Grade Assessment: II - A patient with mild systemic disease. After reviewing the risks and benefits, the patient was deemed in satisfactory condition to undergo the procedure. The anesthesia plan was to use monitored anesthesia care (MAC). Immediately prior to administration of medications, the patient was re-assessed for adequacy to receive sedatives. The heart rate, respiratory rate, oxygen saturations, blood pressure, adequacy of pulmonary ventilation, and response to care were monitored throughout the procedure. The physical status of the patient was re-assessed after the procedure. The Colonoscope was introduced through the anus and advanced to the terminal ileum, with identification of the appendiceal orifice and IC valve. The colonoscopy was performed without difficulty. The patient tolerated the procedure well. The quality of the bowel preparation was good. The ileocecal valve, appendiceal orifice, and rectum were photographed. Scope insertion time was 2 minutes. Scope withdrawal time was 9 minutes. The total duration of the procedure was 12 minutes. Findings: The perianal and digital rectal examinations were normal. A patchy area of mucosa in the terminal ileum was moderately erythematous. Biopsies were taken with a cold forceps for histology. Verification of patient identification for the specimen was done by the physician and nurse using the patient's name, date and medical record number. Estimated blood loss was minimal. Normal mucosa was found in the entire colon. Biopsies for histology were taken with a cold forceps from the right colon, left colon and rectosigmoid colon for evaluation of microscopic colitis. External and internal hemorrhoids were found during retroflexion. The hemorrhoids were mild and small. Impression: - Erythematous mucosa in the terminal ileum. Biopsied. - Normal mucosa in the entire examined colon. Biopsied. - External and internal hemorrhoids. Recommendation: - Patient has a contact number available for emergencies. The signs and symptoms of potential delayed complications were discussed with the patient. Return to normal activities tomorrow. Written discharge instructions were provided to the patient. - High fiber diet. - Continue present medications. - Use fiber, for example Citrucel, Fibercon, Konsyl or Metamucil. - Await pathology results. - Repeat colonoscopy at age 48 for screening purposes. - Telephone GI clinic for pathology results in 2 weeks. - Return to primary care physician. Procedure Code(s): --- Professional --- 77607, Colonoscopy, flexible; with biopsy, single or multiple Diagnosis Code(s): --- Professional --- K63.89, Other specified diseases of intestine K64.8, Other hemorrhoids K52.9, Noninfective gastroenteritis and colitis, unspecified K92.1, Melena (includes Hematochezia) CPT copyright 2019 [employer]. All rights reserved. The codes documented in this report are preliminary and upon belt tender review may be revised to meet current compliance requirements. Bhanu Villasenor MD Bhanu Villasenor MD 04/15/2020 10:59:13 AM Electronically signed by Bhanu Villasenor MD Number of Addenda: 0 Note Initiated On: 04/15/2020 10:20 AM Estimated Blood Loss: Estimated blood loss was minimal.
[2020-04-15 11:06] VITALS: BP 109/63
== END 2020-04-15 11:08 | disposition home or self-care (01) ==
LOC: M OPP 09:05
PROVIDERS: ATTEND Internal Medicine Gastroenterology
DX: K52.9 Noninfective gastroenteritis and colitis, unspecified (principal); K92.1 Melena; K63.89 Other specified diseases of intestine; K64.8 Other hemorrhoids